=== PATIENT | female | born 1950 ===

== ENCOUNTER 2023-04-17 18:00 | Emergency (ER) | payer OTHER, SELFPAY ==
--- NOTE | ~2023-04-17 | XR_ITS ---
EXAMINATION: XR chest 2V DATE: 04/17/2023 18:52 INDICATION: Chest pain TECHNIQUE: AP and lateral views of the chest are obtained. COMPARISON: None available FINDINGS: There are minimal airspace opacities of the lung bases. No pleural effusion or pneumothorax . The cardiomediastinal silhouette is normal. There are bridging osteophytes at multiple levels in th e spine, consistent with diffuse idiopathic skeletal hyperostosis (DISH). 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 IMPRESSION: 1. Minimal airspace opacities of the lung bases, consistent with atelectasis versus pneumonia. Reviewed, dictated and finalized at location F. REPAIRER IMPRESSION: 1. Minimal airspace opacities of the lung bases, consistent with atelectasis ve rsus pneumonia.
[2023-04-17 17:56] VITALS: BP 132/71; PULSE 95; RESP 20; TEMP 36.4; O2SAT 97
--- NOTE | 2023-04-17 18:23 | ECG_ITS ---
Measurements Intervals [place] Rate: 95 P: 71 NV: 165 QRS: -14 QRSD: 122 T: 13 QT: 382 QTc: 482 Interpretive Statements SINUS RHYTHM VENTRICULAR COUPLET AND FREQUENT VENTRICULAR PREMATURE COMPLEXES INCOMPLETE RIGHT BUNDLE BRANCH BLOCK BORDERLINE T WAVE ABNORMALITY- INFERIOR LEADS BASELINE ARTIFACT- I, II, III, AVR, AVL, AVF ABNORMAL ECG NO PREVIOUS ECG AVAILABLE FOR COMPARISON Electronically Signed On 04-17-2023 20:21:32 YARD RIGGER by Cordell Riley D.O.
[2023-04-17 18:31] VITALS: BP 113/79; PULSE 95; RESP 17; O2SAT 94
[2023-04-17 18:35] LABS: Basophils Absolute Auto 0.1 K/mm3 (0.0-0.1); Basophils Percent Auto 0.8 % (0.2-1.2); Eosinophils Absolute Auto 0.2 K/mm3 (0-0.3); Eosinophils Percent Auto 2.4 % (0-4.4); Hematocrit 40.5 % (37.0-47.0); Hemoglobin 12.6 g/dL (12.0-15.0); Immature Granulocyte Absolute 0.01 K/mm3 (0.00-0.031); Immature Granulocyte Percent A 0.2 % (0-0.5); Lymphocytes Absolute Auto 2.12 K/mm3 (0.9-3.2); Lymphocytes Percent Auto 32.1 % (18.3-44.2); Mean Corpuscular HGB Conc 31.1 g/dl (32-36); Mean Corpuscular Hemoglobin 26.1 pg (26-34); Mean Corpuscular Volume 83.9 fl (80-100); Mean Platelet Volume 12.2 fl (7.4-10.4); Monocytes Absolute Auto 0.7 K/mm3 (0.1-0.6); Monocytes Percent Auto 10.6 % (2.6-8.5); Neutrophils Absolute Auto 3.6 K/mm3 (1.3-6.7); Neutrophils Percent Auto 53.9 % (45.5-73.1); Platelet Count Result 184 k/mm3 (150-375); Red Blood Count 4.83 M/mm3 (4.2-5.4); Red Cell Distribution Width 13.8 % (11.5-14.5); White Blood Count 6.6 K/mm3 (4.5-10.0)
[2023-04-17 18:47] LABS: Alanine Aminotransferase 16 U/L (6-35); Albumin Level 4.1 g/dL (3.5-5.1); Alkaline Phosphatase 158 U/L (38-126); Anion Gap 9 mmol/L (8-16); Aspartate Amino Transferase 21 U/L (14-36); Bilirubin,Total 0.3 mg/dL (0.2-1.3); Blood Urea Nitrogen 17 mg/dL (7-17); Calcium 9.4 mg/dL (8.4-10.2); Carbon Dioxide 24 mmol/L (22-30); Chloride 109 mmol/L (98-107); Estimated Glomerular Filt Rate > 60; Glucose 163 mg/dL (65-110); Lipase 138 U/L (23-300); Potassium 3.6 mmol/L (3.4-5.0); Sodium 142 mmol/L (137-145)
--- NOTE | 2023-04-17 18:48 | ED.GENADULT ---
HPI - General Adult General Chief complaint: Chest Pain Stated complaint: chest pain Time Seen by Provider: 04/17/23 18:32 History of Present Illness HPI narrative: patient is a 72-year-old female who presents to the ER with racing of the heart. She reports she was at home and she felt warm like she might be having a fever. She then noticed that her heart rate was very elevated and cold paramedics. She was administered 6 mg of adenosine after having a EKG performed that showed SVT. Patient's heart rate then corrected. She has no chest pain this time. No shortness of breath. She reports she has had some sinus congestion and that is only thing biking her at this time. She reports she has had palpitations like this intermittently over last couple of years in the go away on their own. She reports she is scheduled to see a noc technician at some point was unsure when that is. She has asked me to contact her daughter. Related Data Allergies Allergy/AdvReac Type Severity Reaction Status Date / Time No Known Allergies Allergy Unverified 04/17/23 18:10 Review of Systems Review of Systems: All systems reviewed & are unremarkable except as noted in HPI and below Constitutional: Constitutional: Denies chills and Denies fatigue Comments: flushed feeling ENT: Reports nasal congestion and Denies sore throat Cardiovascular: Cardiovascular: Denies chest pain, Reports rapid heart rate and Denies radiating jaw, neck or arm pain Respiratory: Respiratory: Denies chest congestion, Denies cough and Denies dyspnea Gastrointestinal: Gastrointestinal: Reports no additional gastrointestinal complaints PMFSH Past Medical History Medical History (Updated 04/17/23 @ 21:32 by Deyvi Yao MD) Diabetes Surgical History Surgical History (Updated 04/17/23 @ 21:32 by Deyvi Yao MD) No pertinent past surgical history Exam Narrative: GENERAL: Well-appearing, well-nourished, and in no acute distress. HEAD: Normocephalic, atraumatic. ENT: Mucous membranes moist. NECK: Supple. CHEST: Clear to auscultation. No respiratory distress. HEART: Regular rate and rhythm. Normal peripheral pulses. ABDOMEN: Soft, nontender, nondistended. EXTREMITIES: Normal range of motion. No edema. SKIN: Warm, dry, no rash. NEURO: Alert and oriented x3. PSYCH: Normal mood and affect. Course Course Emergency Course: patient resting comfortably. She already takes metoprolol 50 mg at home. Discussed case with Dr. Feliz Moses. Recommends no change in medications at this time. Recommends follow-up in clinic for further evaluation. I have discussed with the patient the treatment plan av also discussed this with her daughter over the phone. I have encouraged the patient to avoid stimulants at home such as tea/coffee, I have also encouraged her to improve her sleep hygiene and to minimize stress where possible. She attends to her ailing which causes her significant emotional distress and she has cried during conversations about this here. Vital Signs Vital signs: Vital Signs Temperature 97.5 F L 04/17/23 17:56 Pulse Rate 95 04/17/23 17:56 Respiratory Rate 20 04/17/23 17:56 Blood Pressure 132/71 04/17/23 17:56 Pulse Oximetry 97 04/17/23 17:56 Oxygen Delivery Room Air 04/17/23 17:56 Temperature 97.5 F L 04/17/23 17:56 Pulse Rate 89 04/17/23 20:46 Respiratory Rate 20 04/17/23 20:46 Blood Pressure 121/79 04/17/23 20:46 Pulse Oximetry 97 04/17/23 20:46 Oxygen Delivery Room Air 04/17/23 18:08 Medical Decision Making Vital Signs Vital Signs: Vital Signs Temperature 97.5 F L 04/17/23 17:56 Pulse Rate 95 04/17/23 17:56 Respiratory Rate 20 04/17/23 17:56 Blood Pressure 132/71 04/17/23 17:56 Pulse Oximetry 97 04/17/23 17:56 Oxygen Delivery Room Air 04/17/23 17:56 Temperature 97.5 F L 04/17/23 17:56 Pulse Rate 89 04/17/23 20:46 Respiratory Rate 20
[2023-04-17 18:59] LABS: Troponin I < 0.012 ng/mL (0.000-0.034)
--- NOTE | 2023-04-17 19:05 | PC.NURSE ---
Pt daughter, Carie, called asking for update, pt gave permission. Daughter reachable at [phone]
[2023-04-17 19:14] LABS: Partial Thromboplastin Time 24.5 SECONDS (22.3-36.8); Prothrombin Time 13.3 Seconds (11.1-14.7)
[2023-04-17 20:01] VITALS: BP 118/76; PULSE 95; RESP 20; O2SAT 96
[2023-04-17 20:46] VITALS: BP 121/79; PULSE 89; RESP 20; O2SAT 97
--- NOTE | 2023-04-17 21:25 | ECG_ITS ---
Measurements Intervals [place] Rate: 79 P: 37 MA: 178 QRS: -11 QRSD: 113 T: -7 QT: 391 QTc: 450 Interpretive Statements SINUS RHYTHM INTRAVENTRICULAR CONDUCTION DELAY BORDERLINE ST-T WAVE ABNORMALITY- INFERIOR LEADS BASELINE ARTIFACT- I, II, III, AVR, AVL, AVF BORDERLINE ECG NO PREVIOUS ECG AVAILABLE FOR COMPARISON Electronically Signed On 04-18-2023 9:00:02 ASSOCIATE PROJECT MANAGER by Cordell Riley D.O.
[2023-04-17 22:00] LABS: Troponin I < 0.012 ng/mL (0.000-0.034)
[2023-04-17 22:18] VITALS: BP 122/73; PULSE 79; RESP 20; TEMP 36.7; O2SAT 97
== END 2023-04-17 22:19 | disposition home or self-care (01) ==
PROVIDERS: Physician Assistant; Emergency Provider Emergency Medicine; PCP Family Medicine Sports Medicine
DX: I47.10 Supraventricular tachycardia, unspecified (principal); E11.9 Type 2 diabetes mellitus without complications
CPT/HCPCS: 36415; 71046; 80053; 83690; 84484; 85025; 85610; 85730; 93005; 99284